=== PATIENT | male | born 1945 | race Caucasian/White ===

== ENCOUNTER 2019-08-28 09:19 | Outpatient (CLI) | payer MEDICARE, SELFPAY ==
[2019-08-28 09:35] LABS: Appearance Urine Clear (Clear); Basophils Absolute Auto 0.04 K/mm3 (0.00-0.10); Basophils Percent Auto 0.4 % (0.0-1.0); Bilirubin Urine Negative (Negative); Color Urine Yellow (Yellow); Eosinophils Absolute Auto 0.04 K/mm3 (0.02-0.50); Eosinophils Percent Auto 0.4 % (1.0-6.0); Glucose Urine UA Negative (Negative); Hematocrit 47.6 % (37.0-46.0); Hemoglobin 16.1 g/dL (12.4-15.3); Immature Granulocyte Absolute 0.05 K/mm3 (0.00-0.00); Immature Granulocyte Percent A 0.4 % (0.0-0.0); Ketones Urine Negative (Negative); Leukocyte Esterase Ur Negative (Negative); Lymphocytes Absolute Auto 1.83 K/mm3 (1.10-4.50); Lymphocytes Percent Auto 16.2 % (18.0-42.0); Mean Corpuscular HGB Conc 33.8 g/dL (32.0-36.0); Mean Corpuscular Hemoglobin 31.1 pg (27.0-31.0); Mean Corpuscular Volume 92.1 fL (78.0-102.0); Mean Platelet Volume 9.9 fl (8.7-11.0); Monocytes Percent Auto 5.3 % (2.0-11.0); Neutrophils Absolute Auto 8.8 K/mm3 (1.7-7.2); Neutrophils Percent Auto 77.3 % (50.0-70.0); Nitrate Urine Negative (Negative); Platelet Count Result 284 K/mm3 (150-420); Protein Urine Negative (Negative); Red Blood Count 5.17 M/mm3 (4.70-6.10); Red Cell Distribution Width 12.1 % (11.6-14.4); White Blood Count 11.3 K/mm3 (4.8-10.8); pH Urine 6.5 (5.0-8.0)
[2019-08-28 09:42] LABS: Add Urine Microscopic? YES; Blood Urine Trace-lysed (Negative); RBC Urine 0-2 /hpf (0-2); WBC Urine 0-3 /hpf (0-3)
[2019-08-28 09:43] LABS: Bacteria Urine 1+ /hpf; Mucus Urine Few /lpf
[2019-08-28 10:33] LABS: Alanine Aminotransferase 29 U/L (16-63); Albumin Level 4.3 g/dL (3.4-5.0); Alkaline Phosphatase 74 U/L (46-116); Anion Gap 11.8 mmol/L (7-16); Aspartate Amino Transferase 16 U/L (15-37); Bilirubin,Total 0.9 mg/dL (0.00-1.00); Blood Urea Nitrogen 23 mg/dL (7-18); Calcium 9.6 mg/dL (8.5-10.1); Carbon Dioxide 30 mmol/L (21-32); Chloride 101 mmol/L (98-108); Cholesterol 179 mg/dL (0-200); Estimated Glomerular Filt Rate > 60; Glucose 141 mg/dL (70-99); HDL Direct 51 mg/dL (40-60); LDL Cholesterol Calculated 105 mg/dL (<130); Osmolality Calculated 293 mOsm/kg (285-295); Potassium 3.8 mmol/L (3.5-5.1); Sodium 139 mmol/L (136-145); Thyroid Stimulating Hormone 1.47 uIU/mL (0.36-3.74); Triglycerides 114 mg/dL (0-150)
[2019-08-28 15:24] LABS: Hemoglobin A1C 6.7 % (<5.7)
== END 2019-08-28 09:20 | disposition home or self-care (01) ==
LOC: CHSLAB 09:24
PROVIDERS: PCP Internal Medicine; Visit Provider Internal Medicine
DX: R25.1 Tremor, unspecified (principal); G47.33 Obstructive sleep apnea (adult) (pediatric); I10 Essential (primary) hypertension; Z12.5 Encounter for screening for malignant neoplasm of prostate; R73.01 Impaired fasting glucose
CPT/HCPCS: 36415; 80053; 80061; 81001; 83036; 84153; 84443; 85025; G0103

== ENCOUNTER 2020-01-14 14:30 | Outpatient (RCR) | payer MEDICARE, SELFPAY | END 2020-01-14 18:09 | disposition home or self-care (01) | LOC: ANHDMC 14:30 | PROVIDERS: PCP Internal Medicine | DX: E11.9 Type 2 diabetes mellitus without complications (principal); Z71.89 Other specified counseling | CPT/HCPCS: G0108; G0109 ==

== ENCOUNTER 2020-07-06 07:05 | Outpatient (CLI) | payer MEDICARE, SELFPAY ==
[2020-07-06 07:46] LABS: Creatinine Urine 60.62 mg/dL (40-278); MALB Creatinine Ratio 21.4 mg/g (0-30); Microalbumin Urine Random < 13.0 mg/L
[2020-07-06 07:51] LABS: Hemoglobin A1C 5.8 % (<5.7)
[2020-07-06 08:26] LABS: Alanine Aminotransferase 26 U/L (16-63); Albumin Level 4.2 g/dL (3.4-5.0); Alkaline Phosphatase 90 U/L (46-116); Anion Gap 10 mmol/L (8-16); Aspartate Amino Transferase 13 U/L (15-37); Bilirubin,Total 0.6 mg/dL (0.00-1.00); Blood Urea Nitrogen 29 mg/dL (7-18); Calcium 9.7 mg/dL (8.5-10.1); Carbon Dioxide 30 mmol/L (21-32); Chloride 102 mmol/L (98-108); Estimated Glomerular Filt Rate > 60; Glucose 105 mg/dL (70-99); Osmolality Calculated 299 mOsm/kg (285-295); Sodium 142 mmol/L (136-145); Total Protein 6.8 g/dL (6.4-8.2)
== END 2020-07-06 07:06 | disposition home or self-care (01) ==
PROVIDERS: PCP Internal Medicine; Visit Provider Internal Medicine
DX: R73.01 Impaired fasting glucose (principal)
CPT/HCPCS: 36415; 80053; 82043; 83036

== ENCOUNTER 2020-08-11 23:32 | Emergency (ER) | payer MEDICARE, SELFPAY ==
--- NOTE | 2020-08-11 23:39 | ED.EYEPROB ---
HPI - Eye Problem General Chief complaint: Eye Problems Stated complaint: eye problem Time Seen by Provider: 08/11/20 23:39 Source: patient Mode of arrival: ambulatory Limitations: no limitations History of Present Illness HPI Narrative: 75-year-old man comes in today complaining of left eye pain and stating that he thinks he has his contact lens caught in his left eye. Patient states that he was watching TV and he felt the contact lens move and when he went to look in his eye in the mere he notice the lens was in the medial lower part of his left eye. He states his left eye is tearing and red And has a foreign body sensation. Other than strabismus surgery as a child he has had no other surgeries. States he thinks his tetanus shot is up-to-date. Related Data Home Medications Medication Instructions Recorded Confirmed hydrochlorothiazide 25 mg PO DAILY 08/11/20 08/11/20 meloxicam 15 mg PO PRN 08/11/20 08/11/20 quinapril 30 mg PO HS 08/11/20 08/11/20 Allergies Allergy/AdvReac Type Severity Reaction Status Date / Time No Known Allergies Allergy Verified 08/11/20 23:59 Review of Systems Constitutional: Constitutional: Denies chills and Denies fever(s) Eyes: Eyes: Reports as per HPI, Denies change in vision and Denies photophobia ENT: Denies dysphagia, Denies nasal congestion and Denies sore throat Gastrointestinal: Gastrointestinal: Denies nausea and Denies vomiting Integumentary/Breasts: Skin/Breast: Denies pruritus, Denies erythema and Denies rash Neurologic: Denies vertigo, Denies dizziness and Denies syncope Hematologic/Lymphatic: Hematologic/Lymphatic: Denies easy bleeding and Denies easy bruising [facility] Past Medical History Medical History (Updated 08/12/20 @ 00:22 by Sam Li MD) Hypertension Surgical History Surgical History (Updated 08/12/20 @ 00:22 by Sam Li MD) History of strabismus surgery Status post appendectomy Status post cholecystectomy Exam Const: General: healthy appearing, no acute distress and alert Orientation/consciousness: patient oriented x3 Limitations: no limitations HENMT: Head: normal to inspection General nose exam: Normal nares present Face and sinus: normal facial exam Mouth: Yes moist mucous membranes Throat: posterior oropharynx normal Eyes: Pupils: Equal, round and reactive pupils present EOM: EOMs intact bilaterally Other: mild left conjunctival injection. Blue tinged contact lens noted in the medial upper fossa. Neck: Neck: normal visual inspection Resp: Effort & Inspection: normal respiratory effort and not labored Auscultation: clear to auscultation bilaterally, no rales, no rhonchi and no wheezes Cardio: Rate: regular rate Rhythm: regular rhythm Heart sounds: no murmurs Skin: General skin exam: normal color, no jaundice and no pallor Rashes: no rashes Neuro: General: patient oriented x3, moves all extremities, no focal motor deficits and CN's II-XI intact bilaterally Speech: normal speech Gait exam (Neuro): Normal gait present Extrem: General: normal to inspection and no clubbing, cyanosis or edema Psych: Appearance: grossly normal and well kempt Mental Status: mental status grossly normal Affect: normal affect Attitude: cooperative Thought content: Yes Normal thought content present Course Vital Signs Vital signs: Vital Signs Temperature 36.2 C L 08/11/20 23:45 Pulse Rate 84 08/11/20 23:45 Respiratory Rate 20 08/11/20 23:45 Blood Pressure 156/86 H 08/11/20 23:45 Pulse Oximetry 97 08/11/20 23:45 Temperature 36.2 C L 08/11/20 23:45 Pulse Rate 84 08/11/20 23:45 Respiratory Rate 20 08/11/20 23:45 Blood Pressure 156/86 H 08/11/20 23:45 Pulse Oximetry 97 08/11/20 23:45 Procedures FB Removal Eye Foreign Body #1: Foreign Body Removal Date: 08/12/20 Foreign Body Removal Time: 00:24 Time Out performed: Yes Location: eye (L) Topical anesthet
[2020-08-11 23:45] VITALS: BP 156/86; PULSE 84; RESP 20; TEMP 36.2; O2SAT 97
[2020-08-11] MEDS: DACRIOSE EYE IRRIGATION 118 ML BOTTLE (23:50)
[2020-08-11] MEDS: TETRACAINE HCL 0.5% OPHTH SOLN 4 ML BTL 1 DROP (23:55)
[2020-08-12] MEDS: FLUORESCEIN SOD 1 MG/STRIP (00:10)
[2020-08-12 00:25] VITALS: BP 145/80; PULSE 78; RESP 20; O2SAT 97
== END 2020-08-12 00:27 | disposition home or self-care (01) ==
PROVIDERS: Emergency Provider Emergency Medicine; PCP Internal Medicine
DX: T15.92XA Foreign body on external eye, part unspecified, left eye, initial encounter (principal)
CPT/HCPCS: 65220; 99282; A9270

== ENCOUNTER 2020-10-13 07:03 | Outpatient (CLI) | payer MEDICARE, SELFPAY ==
[2020-10-13 07:16] LABS: Basophils Absolute Auto 0.04 K/mm3 (0.00-0.10); Basophils Percent Auto 0.4 % (0.0-1.0); Eosinophils Absolute Auto 0.07 K/mm3 (0.02-0.50); Eosinophils Percent Auto 0.7 % (1.0-6.0); Hematocrit 46.5 % (37.0-46.0); Hemoglobin 15.3 g/dL (12.4-15.3); Immature Granulocyte Absolute 0.04 K/mm3 (0.00-0.00); Immature Granulocyte Percent A 0.4 % (0.0-0.0); Lymphocytes Absolute Auto 2.36 K/mm3 (1.10-4.50); Lymphocytes Percent Auto 23.8 % (18.0-42.0); Mean Corpuscular HGB Conc 32.9 g/dL (32.0-36.0); Mean Corpuscular Hemoglobin 31.3 pg (27.0-31.0); Mean Corpuscular Volume 95.1 fL (78.0-102.0); Mean Platelet Volume 9.9 fl (8.7-11.0); Monocytes Absolute Auto 0.54 K/mm3 (0.10-0.90); Monocytes Percent Auto 5.4 % (2.0-11.0); Neutrophils Absolute Auto 6.9 K/mm3 (1.7-7.2); Neutrophils Percent Auto 69.3 % (50.0-70.0); Platelet Count Result 267 K/mm3 (150-420); Red Blood Count 4.89 M/mm3 (4.70-6.10); Red Cell Distribution Width 12.3 % (11.6-14.4); White Blood Count 9.9 K/mm3 (4.8-10.8)
[2020-10-13 07:32] LABS: Creatinine Urine 109.69 mg/dL (40-278); MALB Creatinine Ratio 11.8 mg/g (0-30); Microalbumin Urine Random < 13.0 mg/L
[2020-10-13 07:34] LABS: Hemoglobin A1C 5.8 % (<5.7)
[2020-10-13 08:29] LABS: Alanine Aminotransferase 25 U/L (16-63); Albumin Level 4.1 g/dL (3.4-5.0); Alkaline Phosphatase 72 U/L (46-116); Anion Gap 10 mmol/L (8-16); Aspartate Amino Transferase 14 U/L (15-37); Bilirubin,Total 0.6 mg/dL (0.00-1.00); Blood Urea Nitrogen 29 mg/dL (7-18); Calcium 9.2 mg/dL (8.5-10.1); Carbon Dioxide 30 mmol/L (21-32); Chloride 104 mmol/L (98-108); Cholesterol 162 mg/dL (0-200); Estimated Glomerular Filt Rate > 60; Glucose 102 mg/dL (70-99); HDL Direct 67 mg/dL (40-60); LDL Cholesterol Calculated 86 mg/dL (<130); Osmolality Calculated 303 mOsm/kg (285-295); Prostate Specific Antigen 0.9 ng/mL (< OR = 4.0); Sodium 144 mmol/L (136-145); Total Protein 6.3 g/dL (6.4-8.2); Triglycerides 44 mg/dL (0-150)
== END 2020-10-13 07:04 | disposition home or self-care (01) ==
LOC: CHSLAB 07:06
PROVIDERS: PCP Internal Medicine; Visit Provider Internal Medicine
DX: R73.03 Prediabetes (principal); I10 Essential (primary) hypertension; E78.5 Hyperlipidemia, unspecified; Z12.5 Encounter for screening for malignant neoplasm of prostate; Z00.00 Encounter for general adult medical examination without abnormal findings
CPT/HCPCS: 36415; 80053; 80061; 82043; 83036; 84153; 85025; G0103

== ENCOUNTER 2021-11-23 07:04 | Outpatient (CLI) | payer MEDICARE, SELFPAY ==
[2021-11-23 07:25] LABS: Appearance Urine Clear (Clear); Bilirubin Urine Negative (Negative); Color Urine Light Yellow (Yellow); Glucose Urine UA Negative (Negative); Ketones Urine Negative (Negative); Leukocyte Esterase Ur Negative (Negative); Nitrate Urine Negative (Negative); Protein Urine 1+ (Negative); Urobilinogen Urine 0.2 mg/dL (0.2-1.0)
[2021-11-23 07:42] LABS: Add Urine Microscopic? YES; Blood Urine Trace-Intact (Negative)
[2021-11-23 07:43] LABS: Bacteria Urine Trace /hpf; RBC Urine 0-2 /hpf (0-2); WBC Urine None seen /hpf (0-3)
== END 2021-11-23 07:05 | disposition home or self-care (01) ==
LOC: CHSLAB 07:08
PROVIDERS: PCP Internal Medicine; Visit Provider Internal Medicine
DX: R80.9 Proteinuria, unspecified (principal)
CPT/HCPCS: 81001

== ENCOUNTER 2021-11-25 07:03 | Outpatient (CLI) | payer MEDICARE, SELFPAY ==
[2021-11-25 07:39] LABS: Total Protein Urine 24 Hr 553 mg/24hr (0-149); Total Protein Urine Random 31.6 mg/dL (0.0-11.9); Total Volume 24 Hour Urine 1750 ml
== END 2021-11-25 07:04 | disposition home or self-care (01) ==
LOC: CHSLAB 07:05
PROVIDERS: PCP Internal Medicine; Visit Provider Internal Medicine
DX: R80.9 Proteinuria, unspecified (principal)
CPT/HCPCS: 81050; 84156

== ENCOUNTER 2021-12-12 08:19 | Outpatient (CLI) | payer MEDICARE, SELFPAY ==
--- NOTE | ~2021-12-12 | US_ITS ---
US renal BI 12/12/2021 09:10 Procedure: Proteinuria. History of renal cyst. Indication: Proteinuria. History of renal cysts. Comparison: Ultrasound dated 10/17/2013 Findings: Renal echotexture is normal bilaterally without hydronephrosis or renal calculus. There are bilateral renal cysts. Right renal cyst measures 3.3 cm. There are multiple left renal cysts, larges t measuring up to 5.7 cm. The right kidney measures 11.3 cm and left kidney measures 11.4 cm. Bladde r within normal limits. Impression: 1: Bilateral renal cysts. Reviewed, dictated and finalized at location B. Impression: 1: Bilateral renal cysts.
== END 2021-12-12 08:20 | disposition home or self-care (01) ==
LOC: CHSIMG 08:20
PROVIDERS: PCP Internal Medicine; Visit Provider Internal Medicine
DX: R80.9 Proteinuria, unspecified (principal); N28.1 Cyst of kidney, acquired
CPT/HCPCS: 76775

== ENCOUNTER 2021-12-20 15:05 | Outpatient (CLI) | payer MEDICARE, SELFPAY ==
[2021-12-23 20:08] LABS: Albumin 4.4 g/dL (3.8-4.8); Alpha 1 Globulin 0.3 g/dL (0.2-0.3); Alpha 2 Globulin 0.7 g/dL (0.5-0.9); Beta 1 Globulin 0.4 g/dL (0.4-0.6); Gamma Globulin 0.7 g/dL (0.8-1.7); Interpretation Consistent with; Protein, Total 6.6 g/dL (6.1-8.1)
[2021-12-24 10:00] LABS: Kappa\\Lambda Light Chains 1.91 (0.26-1.65); Lambda Light Chain 11.6 mg/L (5.7-26.3)
== END 2021-12-20 15:06 | disposition home or self-care (01) ==
LOC: CHSLAB 15:09
PROVIDERS: PCP Internal Medicine; Visit Provider Internal Medicine
DX: R80.9 Proteinuria, unspecified (principal)
CPT/HCPCS: 36415; 83883; 84155; 84165; 86334

== ENCOUNTER 2022-12-29 10:37 | Outpatient (CLI) | payer MEDICARE, SELFPAY ==
--- NOTE | ~2022-12-29 | XR_ITS ---
Clinical Indication: Hypertension PA and lateral views of the chest: Comparison: None Findings: Small calcified right midlung granuloma present. The lungs are otherwise clear, without jacqui dence of focal consolidation or pleural effusion. Cardiomediastinal silhouette is within normal limi ts. Bones and soft tissues are unremarkable. Impression: No significant abnormality seen. Reviewed, dictated and finalized at location . Impression: No significant abnormality seen.
--- NOTE | ~2022-12-29 | XR_ITS ---
Cervical Spine: AP, lateral, open-mouth views Clinical History: Pain Findings: The normal lordotic curve is maintained. The vertebral bodies and posterior elements appea r intact. There is advanced degenerative disc narrowing at C4-C5. There is mild to moderate degenerat jerome disc narrowing at C5-C6.. Pre-vertebral soft tissues are unremarkable. Impression: Degenerative disc narrowing, as above. Reviewed, dictated and finalized at location . Impression: Degenerative disc narrowing, as above.
[2022-12-29 10:58] LABS: Appearance Urine Clear (Clear); Basophils Absolute Auto 0.02 K/mm3 (0.00-0.10); Basophils Percent Auto 0.2 % (0.0-1.0); Bilirubin Urine Negative (Negative); Blood Urine 1+ (Negative); Color Urine Yellow (Yellow); Eosinophils Absolute Auto 0.02 K/mm3 (0.02-0.50); Eosinophils Percent Auto 0.2 % (1.0-6.0); Glucose Urine UA Negative (Negative); Hematocrit 42.3 % (37.0-46.0); Hemoglobin 14.5 g/dL (12.4-15.3); Immature Granulocyte Absolute 0.03 K/mm3 (0.00-0.00); Immature Granulocyte Percent A 0.3 % (0.0-0.0); Ketones Urine Negative (Negative); Leukocyte Esterase Ur Negative (Negative); Lymphocytes Absolute Auto 1.68 K/mm3 (1.10-4.50); Lymphocytes Percent Auto 19.1 % (18.0-42.0); Mean Corpuscular HGB Conc 34.3 g/dL (32.0-36.0); Mean Corpuscular Hemoglobin 32.4 pg (27.0-31.0); Mean Corpuscular Volume 94.6 fL (78.0-102.0); Monocytes Absolute Auto 0.48 K/mm3 (0.10-0.90); Monocytes Percent Auto 5.4 % (2.0-11.0); Neutrophils Absolute Auto 6.6 K/mm3 (1.7-7.2); Neutrophils Percent Auto 74.8 % (50.0-70.0); Nitrate Urine Negative (Negative); Platelet Count Result 218 K/mm3 (150-420); Protein Urine Negative (Negative); Red Blood Count 4.47 M/mm3 (4.70-6.10); Red Cell Distribution Width 11.9 % (11.6-14.4); Specific Grav Ur >= 1.030 (1.010-1.020); Urobilinogen Urine 0.2 mg/dL (0.2-1.0); White Blood Count 8.8 K/mm3 (4.8-10.8); pH Urine 5.5 (5.0-8.0)
[2022-12-29 11:01] LABS: Add Urine Microscopic? YES; Bacteria Urine Trace /hpf; Mucus Urine Few /lpf; Squamous Epithelial Cell Urine Rare /hpf (Few); WBC Urine None seen /hpf (0-3)
[2022-12-29 11:42] LABS: Alanine Aminotransferase 19 U/L (16-63); Albumin Level 3.9 g/dL (3.4-5.0); Alkaline Phosphatase 73 U/L (46-116); Anion Gap 8 mmol/L (8-16); Aspartate Amino Transferase 11 U/L (15-37); Bilirubin,Total 0.8 mg/dL (0.00-1.00); Blood Urea Nitrogen 27 mg/dL (7-18); Calcium 9.6 mg/dL (8.5-10.1); Carbon Dioxide 28 mmol/L (21-32); Chloride 104 mmol/L (98-108); Cholesterol 152 mg/dL (0-200); Estimated Glomerular Filt Rate > 60; Free T4 Free Thyroxine 1.02 ng/dL (0.76-1.46); Glucose 106 mg/dL (70-99); HDL Direct 67 mg/dL (40-60); LDL Cholesterol Calculated 76 mg/dL (<130); Osmolality Calculated 295 mOsm/kg (285-295); Potassium 3.6 mmol/L (3.5-5.1); Prostate Specific Antigen 1.4 ng/mL (< OR = 4.0); Sodium 140 mmol/L (136-145); Thyroid Stimulating Hormone 1.09 uIU/mL (0.36-3.74); Total Protein 6.2 g/dL (6.4-8.2); Triglycerides 47 mg/dL (0-150)
[2022-12-29 12:00] LABS: CRP < 0.5 mg/dL (0.0-0.9)
[2022-12-29 17:47] LABS: Hemoglobin A1C 5.8 % (<5.7)
[2023-01-01 15:56] LABS: Albumin 4.1 g/dL (3.8-4.8); Alpha 1 Globulin 0.3 g/dL (0.2-0.3); Alpha 2 Globulin 0.6 g/dL (0.5-0.9); Beta 1 Globulin 0.4 g/dL (0.4-0.6); Gamma Globulin 0.7 g/dL (0.8-1.7); Interpretation Consistent with; Protein, Total 6.2 g/dL (6.1-8.1)
[2023-01-04 04:45] LABS: Creatinine, Random Urine 134 mg/dL (20-320); Total Protein/Creatinine Ratio 97 mg/g creat (25-148)
== END 2022-12-29 10:38 | disposition home or self-care (01) ==
LOC: CHSLAB 10:42
PROVIDERS: PCP Internal Medicine; Visit Provider Internal Medicine
DX: R27.0 Ataxia, unspecified (principal); I10 Essential (primary) hypertension; I73.9 Peripheral vascular disease, unspecified; M19.90 Unspecified osteoarthritis, unspecified site; R73.09 Other abnormal glucose; Z12.5 Encounter for screening for malignant neoplasm of prostate
CPT/HCPCS: 36415; 71046; 72040; 80053; 80061; 81001; 82570; 83036; 84153; 84155; 84156; 84165; 84166; 84439; 84443; 84481; 85025; 86140; 86334; G0103

== ENCOUNTER 2023-01-11 09:04 | Outpatient (CLI) | payer MEDICARE, SELFPAY ==
--- NOTE | ~2023-01-11 | MR_ITS ---
EXAMINATION: MR brain/brain stem wo con DATE: 01/11/2023 10:28 INDICATION: Monoclonal gammopathy. Unsteady gait. TECHNIQUE: Magnetic resonance imaging (MRI) of the brain and brainstem was performed without intraven ous contrast. COMPARISON: None. FINDINGS: There is an 11 mm mass of increased T2-weighted signal intensity involving the anterior rig ht temporal lobe. There are scattered areas of nonspecific increased T2-weighted signal intensity in the cerebral white matter. There is no acute ischemic infarct or intracranial hemorrhage. The ventric les are normal in size. There is mild mucosal thickening in the paranasal sinuses. The orbits are nor mal. The mastoid air cells are normal. IMPRESSION: 1. 11 mm mass in the anterior right temporal lobe. The differential diagnosis includes glioma, old in farct, and HSV encephalitis. Consider brain MRI without and with contrast. 2. Moderate nonspecific cerebral white matter disease, which likely represents chronic small vessel i schemic disease. Reviewed, dictated and finalized at location E. IMPRESSION: 1. 11 mm mass in the anterior right temporal lobe. The differential diagnosis i ncludes glioma, old infarct, and HSV encephalitis. Consider brain MRI without a nd with contrast. 2. Moderate nonspecific cerebral white matter disease, which likely represents chronic small vessel ischemic disease.
== END 2023-01-11 09:05 | disposition home or self-care (01) ==
LOC: CHSIMG 09:05
PROVIDERS: PCP Internal Medicine; Visit Provider Internal Medicine
DX: R27.0 Ataxia, unspecified (principal); I10 Essential (primary) hypertension; G62.9 Polyneuropathy, unspecified; M19.90 Unspecified osteoarthritis, unspecified site; D47.2 Monoclonal gammopathy; R22.0 Localized swelling, mass and lump, head; R90.82 White matter disease, unspecified
CPT/HCPCS: 70551

== ENCOUNTER 2023-01-18 06:46 | Outpatient (CLI) | payer MEDICARE, SELFPAY ==
--- NOTE | ~2023-01-18 | MR_ITS ---
EXAMINATION: MR brain/brain stem wo/w con DATE: 01/18/2023 07:52 INDICATION: Brain mass. TECHNIQUE: Magnetic resonance imaging (MRI) of the brain and brainstem was performed without and with 15 mL MultiHance intravenous contrast. COMPARISON: Brain MRI 01/11/2023 FINDINGS: There is an 11 mm mass of increased T2-weighted signal intensity involving the anterior rig ht temporal lobe. No contrast enhancement. There are scattered areas of nonspecific increased T2-weig hted signal intensity in the cerebral white matter. There is no acute ischemic infarct or intracrania l hemorrhage. The ventricles are normal in size. There is mild mucosal thickening in the paranasal si nuses. The orbits are normal. The mastoid air cells are normal. IMPRESSION: 1. Stable 11 mm mass in the anterior right temporal lobe. The differential diagnosis includes low-gra de glioma, old infarct, and HSV encephalitis. 2. Moderate nonspecific cerebral white matter disease, which likely represents chronic small vessel i schemic disease. Reviewed, dictated and finalized at location E. IMPRESSION: 1. Stable 11 mm mass in the anterior right temporal lobe. The differential diag nosis includes low-grade glioma, old infarct, and HSV encephalitis. 2. Moderate nonspecific cerebral white matter disease, which likely represents chronic small vessel ischemic disease.
== END 2023-01-18 06:47 | disposition home or self-care (01) ==
LOC: CHSIMG 06:47
PROVIDERS: PCP Internal Medicine; Visit Provider Internal Medicine
DX: G93.89 Other specified disorders of brain (principal); R90.82 White matter disease, unspecified
CPT/HCPCS: 70553

== ENCOUNTER 2023-01-23 10:48 | Outpatient (RCR) | payer MEDICARE, SELFPAY ==
--- NOTE | 2023-01-23 11:49 | OPREHPOC ---
Outpatient Therapy Plan of Care This is a Multidisciplinary Plan of Care that may contain components documented by all disciplines (PT, OT, and ST.) PT Problem 1 PT Problem #1 Knowledge Deficit PT Goal 1 Goal Patient to demonstrate independence with HEP Target Visit 5 PT Problem 2 PT Problem #2 Impaired Strength PT Goal 1 Goal Patient to demonstrate 5/5 B LE strength to improve ability to navigate stairs Target Visit 10 PT Problem 3 PT Problem #3 Impaired Functional Mobil PT Goal 1 Goal 1. Patient to complete 5TSTS in less than 15 seconds to decrease fall risk 2. Patient to nagivate 1600 ft during 6 min walk test to decrease fall risk at home and within the community 3. Patient to report no falls Target Visit 10
--- NOTE | 2023-01-23 11:49 | PTOPEVAL1 ---
Assessment and note entered by Kate Galaviz DPT Evaluation Information Assessment Status Evaluation Diagnosis decreased balance Onset 01/19/23 Subjective Information Patient reports he falls at least once a month in the home and out in the yard. He reports he has noticed a decline in balance over the last year. 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 Patient reports his balance is worse with stair navigation, walking on uneven surfaces, and going up curbs. He reports he does have a cane but does not use it. He reports he was once walking and biking but does not feel confident due to poor balance. Reported Pain Level Pain Score 1: Self Report Assessment PT Clinical Summary Patient is a 77 year old male who presents to PT with impaired balance. Patient demonstrate decreaed B LE strength, impaired balance scoring with 5TSTS and tinetti and impaired gait mechanincs impairing his ability to complete yard work, navigate stairs, and ambulate prolonged distances. He would benefit from skilled PT to address impairments and return to [facility]. Plan of Care Interventions Electrical Stimulation,Gait Training,Hot Pack/Cold Pack,Manual Therapy,Neuro Re-education,Patient/ Caregiver Educati,Therapeutic Activities, Therapeutic Exercise PT Services Indicated Yes Treatment Frequency and 2x weekly for 10 visits Duration These treatments will address the objective and functional deficits as defined above. The patient will be advanced safely and appropriately in order for the patient to progress towards his/her prior level of function. Additional exercises will be introduced and as well as a comprehensive home exercise program upon discharge, if needed, ?to ensure carryover of functional gains achieved in the clinic. This treatment plan has been reviewed and agreement upon by the patient.
--- NOTE | 2023-02-21 09:06 | OPREHPOC ---
Outpatient Therapy Plan of Care This is a Multidisciplinary Plan of Care that may contain components documented by all disciplines (PT, OT, and ST.) PT Problem 1 PT Problem #1 Knowledge Deficit PT Goal 1 Goal Patient to demonstrate independence with HEP Target Visit 5 Progress Met PT Problem 2 PT Problem #2 Impaired Strength PT Goal 1 Goal Patient to demonstrate 5/5 B LE strength to improve ability to navigate stairs Target Visit 14 Progress Partially Met PT Problem 3 PT Problem #3 Impaired Functional Mobil PT Goal 1 Goal 1. Patient to complete 5TSTS in less than 15 seconds to decrease fall risk. met 2. Patient to nagivate 1600 ft during 6 min walk test to decrease fall risk at home and within the community 3. Patient to report no falls. met Target Visit 14 Progress Partially Met PT Goal 2 Goal 1. complete 5x sit to v belt finisher 10 seconds of less with no extra attempts to stand on the first transfer 2. complete TUG in 10 seconds or less Target Visit 14
--- NOTE | 2023-02-21 09:06 | PTOPREEVAL ---
Assessment and note entered by JT File, PT Evaluation Information Assessment Status Re-evaluation Diagnosis decreased balance Onset 01/19/23 Subjective Information patient reports he feels Better overall. he reports no falls. he has no pain today. he reports he is improving in his strength and balance, but feels he still has room to improve. he would like to continue therapy to further improve his strength and balance. Reported Pain Level Pain Score 0: Self Report Assessment PT Clinical Summary mr. nunn is a 77 yo man who presents to skilled PT services for his 10th skilled PT visit today. he has made progerss in LE strength, balance, and ambulation. however, he displays several attempts needed for sit to stand transfers, lack of achievement of ambulation distance goal in 6 minute walk test, and lack of achievement of LE strength goal. he would benefit from continued skilled PT to address his remaining objective/ functional deficits and goals. Plan of Care Interventions Electrical Stimulation,Gait Training,Hot Pack/Cold Pack,Manual Therapy,Neuro Re-education,Patient/ Caregiver Educati,Therapeutic Activities, Therapeutic Exercise PT Services Indicated Yes Treatment Frequency and continue skilled PT 2x weekly for 4 more vists Duration These treatments will address the objective and functional deficits as defined above. The patient will be advanced safely and appropriately in order for the patient to progress towards his/her prior level of function. Additional exercises will be introduced and as well as a comprehensive home exercise program upon discharge, if needed, ?to ensure carryover of functional gains achieved in the clinic. This treatment plan has been reviewed and agreement upon by the patient.
--- NOTE | 2023-03-07 09:17 | OPREHPOC ---
Outpatient Therapy Plan of Care This is a Multidisciplinary Plan of Care that may contain components documented by all disciplines (PT, OT, and ST.) PT Problem 1 PT Problem #1 Knowledge Deficit PT Goal 1 Goal Patient to demonstrate independence with HEP Target Visit 5 Progress Met PT Problem 2 PT Problem #2 Impaired Strength PT Goal 1 Goal Patient to demonstrate 5/5 B LE strength to improve ability to navigate stairs Target Visit 14 Progress Partially Met PT Problem 3 PT Problem #3 Impaired Functional Mobil PT Goal 1 Goal 1. Patient to complete 5TSTS in less than 15 seconds to decrease fall risk. met 2. Patient to nagivate 1600 ft during 6 min walk test to decrease fall risk at home and within the community. not met 3. Patient to report no falls. met Target Visit 14 Progress Partially Met PT Goal 2 Goal 1. complete 5x sit to aluminum hydroxide process operator 10 seconds of less with no extra attempts to stand on the first transfer. met for no extra attempts, but not met for time. 2. complete TUG in 10 seconds or less. not met Target Visit 14 Progress Partially Met
--- NOTE | 2023-03-07 09:17 | PTOPDC ---
Assessment and note entered by JT File, PT Evaluation Information Assessment Status Discharge Diagnosis decreased balance Onset 01/19/23 Subjective Information patient reports he feels good today. he reports overall his balance and flexibility are improved. he reports he thinks he is ready to have the L knee replaced. he reports he is going to continue his exercises at home. Reported Pain Level Pain Score 2: Self Report Additional Pain Score Comments L knee Assessment PT Clinical Summary mr. nunn presents to skilled PT for his 14th skilled visit today. he has had no falls or injuries since his last re-evaluation. he has made progress towards goals for skilled PT, but has plateaued at this time reagrding scores on TUG, 5x sit to stand, and 6 minute walk test. he will DC skilled PT for balance and continue with HEP at home. he will follow up with his ortho surgeon regarding L TKA in the future. Plan of Care PT Services Indicated Yes
== END 2023-03-07 11:26 | disposition home or self-care (01) ==
LOC: CHSPT 10:48
PROVIDERS: PCP Internal Medicine; Visit Provider Internal Medicine
DX: R26.89 Other abnormalities of gait and mobility (principal)
CPT/HCPCS: 97110; 97112; 97150; 97161; 97750

== ENCOUNTER 2023-08-30 13:29 | Outpatient (CLI) | payer MEDICARE, SELFPAY ==
--- NOTE | 2023-08-30 13:36 | ECHO_ITS ---
Patient Info Name: Vishnu Mcpherson Age: 78 years : 1945 Gender: Male Ht: 71 in Wt: 168 lbs BSA: 1.96 m2 HR: 72 bpm BP: 157 / 86 mmHg Technical Quality: Fair Exam Date: 08/30/2023 1:29 PM Exam Location: Echo Lab Patient Status: Outpatient Admit Date: 08/30/2023 Staff Ordering Physician: Maycol Cavanaugh MD Loading Unit Operator Seating: Jhonny Edgar RDCS Attending Provider: Maycol Cavanaugh MD Exam Type: CA echo doppler color flow Study Info Indications - mid systolic murmur Complete two-dimensional, color flow and Doppler transthoracic echocardiogram is performed. Summary 1. Complete two-dimensional, color flow and Doppler transthoracic echocardiogram is performed. 2. Left ventricular chamber dimension is normal. 3. Left ventricular systolic function is normal, estimated at 55-60%. 4. The left ventricular diastolic function is grade I diastolic dysfunction. 5. E/e' 6 is not elevated. 6. Left atrial chamber dimension is mildly enlarged. 7. There is trace aortic valve regurgitation. 8. There is moderate mitral valve regurgitation. 9. There is trace tricuspid valve regurgitation. 10. No pulmonary hypertension, estimated pulmonary arterial systolic pressure is 12 mmHg. Left Ventricle E/e' 6 is not elevated. Left ventricular chamber dimension is normal. Left ventricular systolic function is normal, estimated at 55-60%. The left ventricular diastolic function is grade I diastolic dysfunction. Right Ventricle Right ventricular systolic function is normal and with normal TAPSE 1.8 cm. Right ventricular chamber dimension is normal. Left Atria Left atrial chamber dimension is mildly enlarged. Right Atria Right atrial chamber dimension is normal. Aortic Valve The aortic valve is not well visualized. Cannot determine number of aortic valve leaflets. There is no aortic valve stenosis. There is trace aortic valve regurgitation. Pulmonic Valve There is no pulmonic regurgitation. Mitral Valve There is no mitral valve stenosis. There is moderate mitral valve regurgitation. Tricuspid Valve There is trace tricuspid valve regurgitation. No pulmonary hypertension, estimated pulmonary arterial systolic pressure is 12 mmHg. Pericardium/Pleural There is no pericardial effusion. Inferior Vena Cava Normal inferior vena cava with >50% collapse upon inspiration consistent with normal right atrial pressure, 5 mmHg. Aorta The aortic root size at the sinus of Valsalva is normal. Left Ventricular Outflow Tract Name Value Normal LVOT 2D LVOT Diameter 1.9 cm LVOT Doppler LVOT Peak Velocity 111 cm/s LVOT Peak Gradient 5 mmHg LVOT Mean Gradient 2 mmHg LVOT VTI 19 cm LVOT VTI/AV VTI Ratio 0.7 LVOT Stroke Volume 58 ml Pulmonic Valve Name Value Normal PV Doppler PV Peak Velocity 86 cm/s
== END 2023-08-30 13:30 | disposition home or self-care (01) ==
PROVIDERS: PCP Internal Medicine; Visit Provider Internal Medicine
DX: R01.1 Cardiac murmur, unspecified (principal); I34.0 Nonrheumatic mitral (valve) insufficiency
CPT/HCPCS: 93306

== ENCOUNTER 2023-10-03 11:44 | Outpatient (CLI) | payer MEDICARE, SELFPAY ==
--- NOTE | ~2023-10-03 | XR_ITS ---
Supine and upright views of the abdomen Clinical history: Constipation Findings: Bowel gas pattern is nonspecific. Moderate to large amount of stool suggests constipation. No evidence for obstruction or free air. No abnormal mass lesion or calcification is seen. Osseous st ructures are intact. Impression: Moderate to large amount of stool, consistent with constipation. Reviewed, dictated and finalized at [facility]. Impression: Moderate to large amount of stool, consistent with constipation.
[2023-10-03 12:03] LABS: Hematocrit 45.1 % (37.0-46.0); Hemoglobin 15.5 g/dL (12.4-15.3); Mean Corpuscular HGB Conc 34.4 g/dL (32-36); Mean Corpuscular Hemoglobin 32.3 pg (27.0-31.0); Mean Platelet Volume 9.8 fl (8.7-11.0); Platelet Count Result 266 K/mm3 (150-420); Red Cell Distribution Width 11.8 % (11.6-14.4); White Blood Count 10.6 K/mm3 (4.8-10.8)
[2023-10-03 12:48] LABS: Alanine Aminotransferase 10 U/L (16-63); Albumin Level 4.2 g/dL (3.4-5.0); Alkaline Phosphatase 77 U/L (46-116); Anion Gap 8 mmol/L (4-12); Aspartate Amino Transferase 28 U/L (15-37); Bilirubin,Total 1.2 mg/dL (0.00-1.00); Blood Urea Nitrogen 24 mg/dL (7-18); Calcium 9.5 mg/dL (8.5-10.1); Carbon Dioxide 30 mmol/L (21-32); Chloride 98 mmol/L (98-108); Estimated Glomerular Filt Rate > 60; Glucose 129 mg/dL (70-99); Osmolality Calculated 288 mOsm/kg (285-295); Sodium 136 mmol/L (136-145)
[2023-10-03 12:51] LABS: Potassium 4.5 mmol/L (3.5-5.1)
== END 2023-10-03 11:45 | disposition home or self-care (01) ==
LOC: CHSLAB 11:48
PROVIDERS: PCP Internal Medicine; Visit Provider Internal Medicine
DX: K59.00 Constipation, unspecified (principal)
CPT/HCPCS: 36415; 74018; 80053; 83735; 85027

== ENCOUNTER 2023-11-08 13:30 | Outpatient (RCR) | payer MEDICARE, SELFPAY ==
--- NOTE | 2023-09-27 13:58 | PTOPEVAL1 ---
Assessment and note entered by [facility] Evaluation Information Assessment Status Evaluation Diagnosis PD without dyskinesia or fluctuating manifestations G20.A1 ICD-10 Condition Codes (PT) Difficulty Walking R26.2,R26.9 Onset 08/24/23 Subjective Information Pt. reports that he was recently diagnosed with neuropathy. He states that he has noticed difficulty being aware of the position of his feet . He states that he is having trouble with gas pedals while driving. He states that he has fallen 6-7 times in the past 6 months. He reports that falls typically result from him not picking up his feet. He states that he does have constant tingling and numbness in his feet. He reports that he has difficulty with walking in a dark room and states that washing his hair and closing his eyes is difficult due to poor balance. Reported Pain Level Pain Score 0: Self Report Assessment PT Clinical Summary Pt. is an 78 year old male who enters the clinic due to impaired balance with hx of PD. He presents with somatosensory deconditioning on this date likely resulting from l.e. neuropathy. continued skilled PT is indicated in order to address balance, strength, impaired gait and functional decline to improve pt. safety with IADL and decrease fall risk. Plan of Care Interventions Gait Training,Manual Therapy,Neuro Re-education, Patient/Caregiver Educati,Therapeutic Activities, Therapeutic Exercise,Self-Care/Home Management Treatment Frequency and 2x/week x 10 visits Duration These treatments will address the objective and functional deficits as defined above. The patient will be advanced safely and appropriately in order for the patient to progress towards his/her prior level of function. Additional exercises will be introduced and as well as a comprehensive home exercise program upon discharge, if needed, ?to ensure carryover of functional gains achieved in the clinic. This treatment plan has been reviewed and agreement upon by the patient.
--- NOTE | 2023-09-27 14:02 | OPREHPOC ---
Outpatient Therapy Plan of Care This is a Multidisciplinary Plan of Care that may contain components documented by all disciplines (PT, OT, and ST.) PT Problem 1 PT Problem #1 Knowledge Deficit PT Goal 1 Goal Pt. will be independent with a HEP addressing l.e. strength Target Visit 2 PT Problem 2 PT Problem #2 Impaired Balance PT Goal 1 Goal Pt. will improve his tinetti score to 24 or greater indicating low fall risk. Target Visit 10 PT Problem 3 PT Problem #3 Impaired Gait PT Goal 1 Goal Pt. will complete 6 minute walk test without incidence of right heel striking left stance extremity to improve safety with ambulation. Target Visit 10 PT Problem 4 PT Problem #4 Impaired Functional Mobil PT Goal 1 Goal Pt. will be able to safely lift 10# object from floor to waist maintaining balance Pt. will be able to maintain standing on airex foam eyes closed without lose of balance for 1 minute indicating improved somatosensory condition . Target Visit 10
--- NOTE | 2023-11-07 09:51 | PCPTNOTE ---
Patient was canceled 10/30/23 due to therapist out with illness.
--- NOTE | 2023-11-08 15:27 | PTOPDC ---
Assessment and note entered by [facility] Evaluation Information Assessment Status Discharge Diagnosis PD without dyskinesia ICD-10 Condition Codes (PT) Difficulty Walking R26.2,R26.9 Onset 08/24/23 Subjective Information Pt. reports that he has noticed small changes since beginning therapy. He states that he has not been able to walk outside the clinic as much as he would like. He states that he has been doing all exercise at home. He feels that he would like to continue with PT, however he feels he may need to use a facility closer to his home. He states that the [facility] facility saves him [address] and would like to transfer his care there in order to continue to improve his strength and gait. Reported Pain Level Pain Score 0: Self Report Assessment PT Clinical Summary Pt. continues to present with strength and balance deficits. He travels a long way to attend therapy and request to continue rehab at a closer facility. He would benefit from continued PT in order to further improve gait and balance, as well as continued postural awareness activities. Plan of Care PT Services Indicated No
== END 2023-11-08 16:52 | disposition home or self-care (01) ==
LOC: ANHPT 13:30
PROVIDERS: PCP Internal Medicine
DX: G20.A1 Parkinson's disease without dyskinesia, without mention of fluctuations (principal)
CPT/HCPCS: 97110; 97112; 97116; 97161; 97530; 97750

== ENCOUNTER 2023-11-14 10:31 | Outpatient (RCR) | payer MEDICARE, SELFPAY ==
--- NOTE | 2023-11-14 13:23 | PTOPEVAL1 ---
[facility] Information Assessment Status Evaluation Diagnosis PD without dyskinesia ICD-10 Condition Codes (PT) Difficulty Walking R26.2,R26.9 Onset 08/24/23 Subjective Information Pt. reports that he was receiving therapy in another facility, but transitioned his care due to being closer to home. He reports that he was diagnosed with PD about a year ago. He states that while he has improved with recent PT he still has concerns regarding his balance. He states that he notices occasional stumbling and issue regarding endurance. He reports that his goal remains to improve his gait and strength. Reported Pain Level Pain Score 0: Self Report Assessment PT Clinical Summary Pt. enters the facility 6 days following last re- evaluation at another facility. Pt. requested to change facilities due to closer proximity in [place]. Most data was taken from the patients evaluation performed at his last facility by myself. He currently presents with impaired postural awareness, continued fall risk, continued weakness and impaired gait, despite improvements from initial evaluation. Recommend continued skilled PT to further improve gait efficiency, balance and begin focus on postural awareness. Plan of Care Interventions Gait Training,Manual Therapy,Neuro Re-education, Patient/Caregiver Educati,Therapeutic Activities, Therapeutic Exercise PT Services Indicated Yes Treatment Frequency and 2x/week x 8 visits Duration These treatments will address the objective and functional deficits as defined above. The patient will be advanced safely and appropriately in order for the patient to progress towards his/her prior level of function. Additional exercises will be introduced and as well as a comprehensive home exercise program upon discharge, if needed, ?to ensure carryover of functional gains achieved in the clinic. This treatment plan has been reviewed and agreement upon by the patient.
--- NOTE | 2023-11-14 13:24 | OPREHPOC ---
Outpatient Therapy Plan of Care This is a Multidisciplinary Plan of Care that may contain components documented by all disciplines (PT, OT, and ST.) PT Problem 1 PT Problem #1 Knowledge Deficit PT Goal 1 Goal / Goal Update Pt. will present with independence with a HEP addressing postural awareness Target Visit 2 PT Problem 2 PT Problem #2 Impaired Balance PT Goal 1 Goal / Goal Update Pt. will improve his Tinetti score to 24 or more indicating low fall risk. Target Visit 8 PT Problem 3 PT Problem #3 Impaired Gait PT Goal 1 Goal / Goal Update Pt. will complete the 6 minute walk test without incidence of right heel striking the left stance extremity to improved safety with ambulation Target Visit 8 PT Problem 4 PT Problem #4 Impaired Functional Mobil PT Goal 1 Goal / Goal Update Pt. will be able to safely lift 10# object from floor to waist maintaining balance. Pt. will be able to maintain standing on airex foam eyes closed without lose of balance for 1 minute indicating improved somatosensory condition . Target Visit 8
--- NOTE | 2023-12-05 15:47 | PTOPEVAL1 ---
Assessment and note entered by [facility] Evaluation Information Assessment Status Progress Diagnosis PD without dyskinesia ICD-10 Condition Codes (PT) Difficulty Walking R26.2,R26.9 Onset 08/24/23 Subjective Information Pt. reports that his walking has improved. He states that he still uses his cane in the morning, but notices less incidence of stumbling. He states that he is dizzy today, but did not eat much for breakfast. He reports that he notices he is stronger with getting into and out of a chair. He reports that his goal is to be able to walk with improved independence and no episode of stumbling. Reported Pain Level Pain Score 3: Self Report Assessment PT Clinical Summary Pt. demonstrate improvement in l.e. strength and gait. Despite improvements weakness continues to remain in the l.e. and he continues to present with moderate fall risk. He would benefit from skilled PT at this time to continue to achieve improvements in overall balance and Tinetti score and to continue to address postural awareness to allow for improved safety and efficiency with ADL' s. Plan of Care Interventions Gait Training,Manual Therapy,Neuro Re-education, Patient/Caregiver Educati,Therapeutic Activities, Therapeutic Exercise PT Services Indicated Yes Treatment Frequency and 2x/week x 8 visits Duration These treatments will address the objective and functional deficits as defined above. The patient will be advanced safely and appropriately in order for the patient to progress towards his/her prior level of function. Additional exercises will be introduced and as well as a comprehensive home exercise program upon discharge, if needed, ?to ensure carryover of functional gains achieved in the clinic. This treatment plan has been reviewed and agreement upon by the patient.
--- NOTE | 2024-01-02 10:28 | PTOPDC ---
Assessment and note entered by [facility] Evaluation Information Assessment Status Discharge Diagnosis PD without dyskinesia ICD-10 Condition Codes (PT) Difficulty Walking R26.2,R26.9 Onset 08/24/23 Subjective Information Pt. notices that he is walking better. He states that he is overall more confident with his walking . He reports that he fatigues less easily and catches his toe less frequently on the left side. Reported Pain Level Pain Score 0: Self Report Assessment PT Clinical Summary Pt. presents with improved gait efficiency, improved l.e. strength and no recent incident of fall or lose of balance. He is independent with a current HEP. At this time given his improvement, pt. will be discharged from our care to an independent HEP. Plan of Care PT Services Indicated No
== END 2024-01-02 10:31 | disposition home or self-care (01) ==
LOC: CHSPT 10:31
PROVIDERS: PCP Internal Medicine
DX: G20.A1 Parkinson's disease without dyskinesia, without mention of fluctuations (principal)
CPT/HCPCS: 97110; 97112; 97150; 97530

== ENCOUNTER 2024-01-30 14:45 | Outpatient (RCR) | payer MEDICARE, SELFPAY ==
--- NOTE | 2024-01-30 15:32 | OPREHPOC ---
Outpatient Therapy Plan of Care This is a Multidisciplinary Plan of Care that may contain components documented by all disciplines (PT, OT, and ST.) PT Problem 1 PT Problem #1 Knowledge Deficit PT Goal 1 Goal / Goal Update 1. compliant with HEP program, maintenance program , and attendance of 2x weekly fall prevention class Target Visit 4 PT Problem 2 PT Problem #2 Impaired Functional Mobil PT Goal 1 Goal / Goal Update 1. patient to display no more than a 2-3 second reduction in score on the TUG and 5x sit to stand 2. HYDE to display 6 points or greater improvement of score. Target Visit 4
--- NOTE | 2024-01-30 15:32 | PTOPEVAL1 ---
Assessment and note entered by [facility], PT Evaluation Information Assessment Status Re-evaluation Diagnosis parkinson's disease Other ICD-10 Condition Codes ( G20.A1; G62.9 PT) Onset 01/21/24 Subjective Information patient was recently in PT at this facility for his diagnosis of Parkinson's Disease. he was discharged on 01/02/24, but returned to his neurologist who sent new orders for him to return to PT. he reports he has been exercising at home alone since he was discharged, and has attended no other classes. Reported Pain Level Pain Score 0: Self Report Assessment PT Clinical Summary mr. nunn presents to skilled PT for therapy pertaining to prevention of the progression of his parkinson's disease. he was recently in PT for this same diagnosis. however, after DC, his neurolgist suggested he continue PT to prevent the progression of his disease. he presents today with a high fall risk, but good scores on the 5x sit to stand/tug/ambulation. he would benefit from return to skilled PT for a maintenance program, and also attendance at 2x weekly fall prevention class. Plan of Care Interventions Gait Training,Neuro Re-education,Patient/Caregiver Educati,Therapeutic Activities,Therapeutic Exercise PT Services Indicated Yes Treatment Frequency and 1x weekly for 4 visits in a maintenance program Duration These treatments will address the objective and functional deficits as defined above. The patient will be advanced safely and appropriately in order for the patient to progress towards his/her prior level of function. Additional exercises will be introduced and as well as a comprehensive home exercise program upon discharge, if needed, ?to ensure carryover of functional gains achieved in the clinic. This treatment plan has been reviewed and agreement upon by the patient.
--- NOTE | 2024-02-20 15:47 | OPREHPOC ---
Outpatient Therapy Plan of Care This is a Multidisciplinary Plan of Care that may contain components documented by all disciplines (PT, OT, and ST.) PT Problem 1 PT Problem #1 Knowledge Deficit PT Goal 1 Goal / Goal Update 1. compliant with HEP program, maintenance program , and attendance of 2x weekly fall prevention class Target Visit 4 Progress Met PT Problem 2 PT Problem #2 Impaired Functional Mobil PT Goal 1 Goal / Goal Update 1. patient to display no more than a 2-3 second reduction in score on the TUG and 5x sit to stand. met 2Michael HYDE to display 6 points or greater improvement of score. not met Target Visit 8 Progress Partially Met
--- NOTE | 2024-02-20 15:47 | PTOPREEVAL ---
Assessment and note entered by [facility], PT Evaluation Information Assessment Status Re-evaluation Diagnosis parkinson's disease Other ICD-10 Condition Codes ( G20.A1; G62.9 PT) Onset 01/21/24 Subjective Information patient reports he feels good today. he has only mild symptoms in the L knee that he has all the time due to OA in the knee. he has been compliant with his HEP, PT, and fall prevention classes. Reported Pain Level Pain Score 0: Self Report Assessment PT Clinical Summary mr. nunn has completed 4 visits of skilled maintenance therapy as of this date. he presents with improved ambulation efficiency, and decreased fall risk per the 5x sit to stand and TUG scores today. however, he has not met goal for increased balance/performance on the HYDE. he is attending 2x weekly fall prevention class, but would do well to continue skilled maintenance therapy 1x weekly with greater focus on static and dynamic balance improvements to achieve skilled PT goals. Plan of Care Interventions Gait Training,Neuro Re-education,Patient/Caregiver Educati,Therapeutic Activities,Therapeutic Exercise PT Services Indicated Yes Treatment Frequency and continue skilled PT 1x weekly for 4 more visits Duration These treatments will address the objective and functional deficits as defined above. The patient will be advanced safely and appropriately in order for the patient to progress towards his/her prior level of function. Additional exercises will be introduced and as well as a comprehensive home exercise program upon discharge, if needed, ?to ensure carryover of functional gains achieved in the clinic. This treatment plan has been reviewed and agreement upon by the patient.
--- NOTE | 2024-03-21 14:39 | OPREHPOC ---
Outpatient Therapy Plan of Care This is a Multidisciplinary Plan of Care that may contain components documented by all disciplines (PT, OT, and ST.) PT Problem 1 PT Problem #1 Knowledge Deficit PT Goal 1 Goal / Goal Update 1. compliant with HEP program, maintenance program , and attendance of 2x weekly fall prevention class Target Visit 4 Progress Met PT Problem 2 PT Problem #2 Impaired Functional Mobility PT Goal 1 Goal / Goal Update 1. patient to display no more than a 2-3 second reduction in score on the TUG and 5x sit to stand. met 2. HYDE to display 6 points or greater improvement of score. not met Target Visit 12 Progress Partially Met PT Problem 3 PT Problem #3 Impaired Functional Mobility PT Goal 1 Goal / Goal Update 1. patient to ambulate up and down steps with reciprocal mechanics without need for UE assist to pullup to next step going up. Target Visit 12
--- NOTE | 2024-03-21 14:39 | PTOPREEVAL ---
Assessment and note entered by [facility], PT Evaluation Information Assessment Status Re-evaluation Diagnosis parkinson's disease Other ICD-10 Condition Codes ( G20.A1; G62.9 PT) Onset 01/21/24 Subjective Information patient reports he feels alright today. he reports he continues to be bothered on and off by pain in his L knee. he is not sure if he is going to ever have it replaced or not. he reports he does believe therapy helps keep him moving and keeps his balance up. Reported Pain Level Pain Score 4: Self Report Assessment PT Clinical Summary mr. nunn presents to skilled PT services for re- evaluation and treatment today. today is his 8th maintenance therapy treatment, and aside from his L knee pain impacting his walking at times, he has done well to maintain all scores within an acceptable range on the tug, masters, and 5x sit to stand. he would benefit from continued skilled PT in a maintenance program given his diagnosis of Parkinson's. he would also benefit from additional practice and training on stair ambulation to improve function and independence on step. Plan of Care Interventions Gait Training,Neuro Re-education,Patient/Caregiver Education,Therapeutic Activities,Therapeutic Exercise PT Services Indicated Yes Treatment Frequency and continue skilled PT 1x weekly for 4 more visits Duration These treatments will address the objective and functional deficits as defined above. The patient will be advanced safely and appropriately in order for the patient to progress towards his/her prior level of function. Additional exercises will be introduced and as well as a comprehensive home exercise program upon discharge, if needed, ?to ensure carryover of functional gains achieved in the clinic. This treatment plan has been reviewed and agreement upon by the patient.
--- NOTE | 2024-03-28 14:10 | PCPTNOTE ---
Patient called & cancelled scheduled appointment this date due to weather.
--- NOTE | 2024-04-23 14:19 | OPREHPOC ---
Outpatient Therapy Plan of Care This is a Multidisciplinary Plan of Care that may contain components documented by all disciplines (PT, OT, and ST.) PT Problem 1 PT Problem #1 Knowledge Deficit PT Goal 1 Goal / Goal Update 1. compliant with HEP program, maintenance program , and attendance of 2x weekly fall prevention class Target Visit 4 Progress Met PT Problem 2 PT Problem #2 Impaired Functional Mobility PT Goal 1 Goal / Goal Update 1. patient to display no more than a 2-3 second reduction in score on the TUG and 5x sit to stand. met 2. HYDE to display 6 points or greater improvement of score. not met Target Visit 16 Progress Partially Met PT Problem 3 PT Problem #3 Impaired Functional Mobility PT Goal 1 Goal / Goal Update 1. patient to ambulate up and down steps with reciprocal mechanics without need for UE assist to pullup to next step going up. Target Visit 16
--- NOTE | 2024-04-23 14:19 | PTOPREEVAL ---
Assessment and note entered by [facility], PT Evaluation Information Assessment Status Re-evaluation Diagnosis parkinson's disease Other ICD-10 Condition Codes ( G20.A1; G62.9 PT) Onset 01/21/24 Subjective Information patient reports the L knee is tender today. he reports lately he feels he is doing better with therapy. he reports he is either improved most of the time or staying the same. he reports he is definitely not regressing. Reported Pain Level Pain Score 4: Self Report Assessment PT Clinical Summary mr. nunn presents to skilled PT services for his 12th skilled maintenance PT. he presents today with improved time on the 5x sit to stand and maintained time on the TUG. he does walk more slowly during the 6 minute walk test, but is limited due to increased pain in the L knee. continued skilled maintenance PT is indicated with the focus on balance and proprioception and functional activity maintenance. Plan of Care Interventions Gait Training,Neuro Re-education,Patient/Caregiver Education,Therapeutic Activities,Therapeutic Exercise PT Services Indicated Yes Treatment Frequency and continue skilled PT 1x weekly for 4 more visits Duration These treatments will address the objective and functional deficits as defined above. The patient will be advanced safely and appropriately in order for the patient to progress towards his/her prior level of function. Additional exercises will be introduced and as well as a comprehensive home exercise program upon discharge, if needed, ?to ensure carryover of functional gains achieved in the clinic. This treatment plan has been reviewed and agreement upon by the patient.
== END 2024-04-23 11:13 | disposition still patient (30) ==
LOC: CHSPT 14:45
DX: G62.9 Polyneuropathy, unspecified (principal); G20.A1 Parkinson's disease without dyskinesia, without mention of fluctuations
CPT/HCPCS: 97110; 97112; 97150; 97161; 97530; 97750

== ENCOUNTER 2024-05-07 12:58 | Outpatient (RCR) | payer MEDICARE, SELFPAY ==
--- NOTE | 2024-05-28 13:54 | OPREHPOC ---
Outpatient Therapy Plan of Care This is a Multidisciplinary Plan of Care that may contain components documented by all disciplines (PT, OT, and ST.) PT Problem 1 PT Problem #1 Knowledge Deficit PT Goal 1 Goal / Goal Update 1. compliant with HEP program, maintenance program , and attendance of 2x weekly fall prevention class Target Visit 4 Progress Met PT Problem 2 PT Problem #2 Impaired Functional Mobility PT Goal 1 Goal / Goal Update 1. patient to display no more than a 2-3 second reduction in score on the TUG and 5x sit to stand. met 2. HYDE to display 6 points or greater improvement of score. met Target Visit 16 Progress Met PT Problem 3 PT Problem #3 Impaired Functional Mobility PT Goal 1 Goal / Goal Update 1. patient to ambulate up and down steps with reciprocal mechanics without need for UE assist to pullup to next step going up. Target Visit 16 Progress Not Met
--- NOTE | 2024-05-28 13:54 | PTOPPROG ---
Assessment and note entered by Iris Rudolph, PT Evaluation Information Assessment Status Progress Diagnosis Parkinson's Disease Other ICD-10 Condition Codes ( G20.A1; G62.9 PT) Onset 01/21/24 Subjective Information Vishnu Mcpherson reports he doing well. He is coming to skilled PT once a week and goes to fall prevention class 1-2 times a week. He has not had any falls over the last month. He reports he uses a cart when he walks at the grocery store or [employer]. He notes he is more unsteady when he closes his eyes or is in a dark room. Assessment PT Clinical Summary Vishnu Mcpherson has completed 16th skilled maintenance PT visits. He demonstrates improved scores on the Powers Balance test, 5 time sit to stand, and TUG tests. He does have knee pain with prolonged walking. He continues to benefit from skilled maintenance PT to prevent regression of balance, endurance, and strength. Plan of Care Interventions Gait Training,Neuro Re-education,Patient/Caregiver Education,Therapeutic Activities,Therapeutic Exercise PT Services Indicated Yes Treatment Frequency and continue skilled PT 1x weekly for 4 more visits Duration These treatments will address the objective and functional deficits as defined above. The patient will be advanced safely and appropriately in order for the patient to progress towards his/her prior level of function. Additional exercises will be introduced and as well as a comprehensive home exercise program upon discharge, if needed, to ensure carryover of functional gains achieved in the clinic. This treatment plan has been reviewed and agreement upon by the patient.
--- NOTE | 2024-06-25 13:59 | OPREHPOC ---
Outpatient Therapy Plan of Care This is a Multidisciplinary Plan of Care that may contain components documented by all disciplines (PT, OT, and ST.) PT Problem 1 PT Problem #1 Knowledge Deficit PT Goal 1 Goal / Goal Update 1. compliant with HEP program, maintenance program , and attendance of 2x weekly fall prevention class Target Visit 4 Progress Met PT Problem 2 PT Problem #2 Impaired Functional Mobility PT Goal 1 Goal / Goal Update 1. patient to display no more than a 2-3 second reduction in score on the TUG and 5x sit to stand. met 2. HYDE to display 6 points or greater improvement of score. met Target Visit 16 Progress Met PT Goal 2 Goal / Goal Update New Goal: Patient to demonstrate a low fall risk per the Tinetti Balance Score. Patient to demonstrate a low fall risk per the HYDE balance test. Target Visit 24 PT Problem 3 PT Problem #3 Impaired Functional Mobility PT Goal 1 Goal / Goal Update 1. patient to ambulate up and down steps with reciprocal mechanics without need for UE assist to pullup to next step going up. Target Visit 16 Progress Not Met PT Goal 2 Goal / Goal Update Continue Target Visit 24
--- NOTE | 2024-06-25 13:59 | PTOPPROG ---
Assessment and note entered by Iris Rudolph, PT Evaluation Information Assessment Status Progress Diagnosis Parkinson's Disease Other ICD-10 Condition Codes ( G20.A1; G62.9 PT) Onset 01/21/24 Subjective Information Vishnu Mcpherson reports he continues to do well and is coming to skilled PT once a week and goes to fall prevention class 1-2 times a week. He has not had any falls over the last month. He has a cane he uses occasionally and uses a cart when he walks at the grocery store or [employer]. He normally does not use an AD. He will see a neurologist who specializes in Parkinson's Disease on 06/26/24. Assessment PT Clinical Summary Vishnu Mcpherson has completed 20 skilled maintenance PT visits. He demonstrates improved scores on the Powers Balance test, 5 time sit to stand, and TUG tests. He does demonstrate difficulty with higher level balance and dynamic gait. He is taking stairs one at a time. He continues to benefit from skilled maintenance PT to prevent regression of balance, endurance, and strength. Plan of Care Interventions Gait Training,Neuro Re-education,Patient/Caregiver Education,Therapeutic Activities,Therapeutic Exercise PT Services Indicated Yes Treatment Frequency and continue skilled PT 1x weekly for 4 more visits Duration These treatments will address the objective and functional deficits as defined above. The patient will be advanced safely and appropriately in order for the patient to progress towards his/her prior level of function. Additional exercises will be introduced and as well as a comprehensive home exercise program upon discharge, if needed, to ensure carryover of functional gains achieved in the clinic. This treatment plan has been reviewed and agreement upon by the patient.
--- NOTE | 2024-07-23 14:46 | OPREHPOC ---
Outpatient Therapy Plan of Care This is a Multidisciplinary Plan of Care that may contain components documented by all disciplines (PT, OT, and ST.) PT Problem 1 PT Problem #1 Knowledge Deficit PT Goal 1 Goal / Goal Update 1. compliant with HEP program, maintenance program , and attendance of 2x weekly fall prevention class Target Visit 4 Progress Met PT Problem 2 PT Problem #2 Impaired Functional Mobility PT Goal 1 Goal / Goal Update 1. patient to display no more than a 2-3 second reduction in score on the TUG and 5x sit to stand. met 2. HYDE to display 6 points or greater improvement of score. met Target Visit 16 Progress Met PT Goal 2 Goal / Goal Update New Goal: Patient to demonstrate a low fall risk per the Tinetti Balance Score. Patient to demonstrate a low fall risk per the HYDE balance test. Target Visit 28 Progress Not Met PT Problem 3 PT Problem #3 Impaired Functional Mobility PT Goal 1 Goal / Goal Update 1. patient to ambulate up and down steps with reciprocal mechanics without need for UE assist to pullup to next step going up. Target Visit 28 Progress Not Met PT Goal 2 Goal / Goal Update Continue Target Visit 28
--- NOTE | 2024-07-23 14:47 | PTOPREEVAL ---
Assessment and note entered by JT File, PT Evaluation Information Assessment Status Re-evaluation Diagnosis Parkinson's Disease Other ICD-10 Condition Codes ( G20.A1; G62.9 PT) Onset 01/21/24 Subjective Information patient reports he feels Good today. he reports he continues to have pain in the L knee with increased standing and walking activities. he reports he has had no falls since his last re- evaluation. he is compliant with HEP at home, and attends a group class 2x weekly for strengthening of his legs and arms. Reported Pain Level Pain Score 0: Self Report Assessment PT Clinical Summary Mr. Mcpherson is able to ambulate independently without AD safely on level surfaces. Pts tinetti, HYDE, and 6 minute walk test scores are similar to last evaluation and don't show significant regression. however, given the progressive nature of the patients parksinsons diagonsis, he remains a fall risk, and has difficulty with higher level balance tasks without UE support and SBA for safety. continued skilled PT is indicated to maintain his balance, ambulation, and safety with activities to maintain his current functional level and quality of life. Plan of Care Interventions Gait Training,Neuro Re-education,Patient/Caregiver Education,Therapeutic Activities,Therapeutic Exercise PT Services Indicated Yes Treatment Frequency and continue skilled maintenance program 1x weekly for Duration 4 more visits These treatments will address the objective and functional deficits as defined above. The patient will be advanced safely and appropriately in order for the patient to progress towards his/her prior level of function. Additional exercises will be introduced and as well as a comprehensive home exercise program upon discharge, if needed, to ensure carryover of functional gains achieved in the clinic. This treatment plan has been reviewed and agreement upon by the patient.
== END 2024-07-30 20:00 | disposition still patient (30) ==
LOC: CHSPT 12:58
DX: G62.9 Polyneuropathy, unspecified (principal); G20.A1 Parkinson's disease without dyskinesia, without mention of fluctuations
CPT/HCPCS: 97110; 97112; 97161; 97530; 97750

== ENCOUNTER 2024-08-06 13:20 | Outpatient (RCR) | payer MEDICARE, SELFPAY ==
--- NOTE | 2024-08-20 13:53 | OPREHPOC ---
Outpatient Therapy Plan of Care This is a Multidisciplinary Plan of Care that may contain components documented by all disciplines (PT, OT, and ST.) PT Problem 1 PT Problem #1 Knowledge Deficit PT Goal 1 Goal / Goal Update 1. compliant with HEP program, maintenance program , and attendance of 2x weekly fall prevention class Target Visit 4 Progress Met PT Problem 2 PT Problem #2 Impaired Functional Mobility PT Goal 1 Goal / Goal Update 1. patient to display no more than a 2-3 second reduction in score on the TUG and 5x sit to stand. met 2. HYDE to display 6 points or greater improvement of score. met Target Visit 16 Progress Met PT Goal 2 Goal / Goal Update New Goal: Patient to demonstrate a low fall risk per the Tinetti Balance Score. Patient to demonstrate a low fall risk per the HYDE balance test. Target Visit 32 Progress Not Met PT Problem 3 PT Problem #3 Impaired Functional Mobility PT Goal 1 Goal / Goal Update 1. patient to ambulate up and down steps with reciprocal mechanics without need for UE assist to pullup to next step going up. Target Visit 32 Progress Not Met PT Goal 2 Goal / Goal Update Continue Target Visit 32
--- NOTE | 2024-08-20 13:54 | PTOPREEVAL ---
Assessment and note entered by JT File, PT Evaluation Information Assessment Status Re-evaluation Diagnosis Parkinson's Disease Other ICD-10 Condition Codes ( G20.A1; G62.9 PT) Onset 01/21/24 Subjective Information patient reports he has had no changes in his health since his last re-evaluation. he reports he has had no falls. he reports the L knee is feeling good today including the L knee. he reports he has no pain to report. Reported Pain Level Pain Score 0: Self Report Assessment PT Clinical Summary mrs. nunn presents to skilled PT for re-evaluation of his maintenance POC for Parkinson's. despite his reports of no falls, patient continues to be a fall risk when up on his feet for a prolonged time, making sharp turns, and repetitively using stairs. continue skilled maintenance PT is indicated to maintain patients safety, stability, and lack of falls to prevent worsening Parkinson's condition or injury. Plan of Care Interventions Gait Training,Neuro Re-education,Patient/Caregiver Education,Therapeutic Activities,Therapeutic Exercise PT Services Indicated Yes Treatment Frequency and continue skilled maintenance PT 1x weekly for 4 Duration more visits These treatments will address the objective and functional deficits as defined above. The patient will be advanced safely and appropriately in order for the patient to progress towards his/her prior level of function. Additional exercises will be introduced and as well as a comprehensive home exercise program upon discharge, if needed, ?to ensure carryover of functional gains achieved in the clinic. This treatment plan has been reviewed and agreement upon by the patient.
--- NOTE | 2024-09-24 14:26 | OPREHPOC ---
Outpatient Therapy Plan of Care This is a Multidisciplinary Plan of Care that may contain components documented by all disciplines (PT, OT, and ST.) PT Problem 1 PT Problem #1 Knowledge Deficit PT Goal 1 Goal / Goal Update 1. compliant with HEP program, maintenance program , and attendance of 2x weekly fall prevention class Target Visit 4 Progress Met PT Problem 2 PT Problem #2 Impaired Functional Mobility PT Goal 1 Goal / Goal Update 1. patient to display no more than a 2-3 second reduction in score on the TUG and 5x sit to stand. met 2. HYDE to display 6 points or greater improvement of score. met Target Visit 16 Progress Met PT Goal 2 Goal / Goal Update New Goal: Patient to demonstrate a low fall risk per the Tinetti Balance Score. Patient to demonstrate a low fall risk per the HYDE balance test. Target Visit 36 Progress Not Met PT Problem 3 PT Problem #3 Impaired Functional Mobility PT Goal 1 Goal / Goal Update 1. patient to ambulate up and down steps with reciprocal mechanics without need for UE assist to pullup to next step going up. Target Visit 32 Progress Not Met PT Goal 2 Goal / Goal Update Continue Target Visit 36
--- NOTE | 2024-09-24 14:27 | PTOPPROG ---
Assessment and note entered by Iris Rudolph, PT Evaluation Information Assessment Status Progress Diagnosis Parkinson's Disease Other ICD-10 Condition Codes ( G20.A1; G62.9 PT) Onset 01/21/24 Subjective Information Vishnu Mcpherson reports he saw his neurologist on and he thought he was doing well. He recommend he continue his PT as long as he can. Mr. Mcpherson reports he has had no falls and he is currently not having pain. Assessment PT Clinical Summary mrs. mcpherson presents to skilled PT for re-evaluation of his maintenance POC for Parkinson's. despite his reports of no falls, patient continues to be a fall risk when up on his feet for a prolonged time, making sharp turns, and repetitively using stairs. he continues to demonstrate a moderate fall risk per the Tinetti and Powers balance scales. continue skilled maintenance PT is indicated to maintain patients safety, stability, and lack of falls to prevent worsening Parkinson's condition or injury. Plan of Care Interventions Gait Training,Neuro Re-education,Patient/Caregiver Education,Therapeutic Activities,Therapeutic Exercise PT Services Indicated Yes Treatment Frequency and continue skilled maintenance PT 1x weekly for 4 Duration more visits These treatments will address the objective and functional deficits as defined above. The patient will be advanced safely and appropriately in order for the patient to progress towards his/her prior level of function. Additional exercises will be introduced and as well as a comprehensive home exercise program upon discharge, if needed, ?to ensure carryover of functional gains achieved in the clinic. This treatment plan has been reviewed and agreement upon by the patient.
--- NOTE | 2024-10-22 14:02 | OPREHPOC ---
Outpatient Therapy Plan of Care This is a Multidisciplinary Plan of Care that may contain components documented by all disciplines (PT, OT, and ST.) PT Problem 1 PT Problem #1 Knowledge Deficit PT Goal 1 Goal / Goal Update 1. compliant with HEP program, maintenance program , and attendance of 2x weekly fall prevention class Target Visit 4 Progress Met PT Problem 2 PT Problem #2 Impaired Functional Mobility PT Goal 1 Goal / Goal Update 1. patient to display no more than a 2-3 second reduction in score on the TUG and 5x sit to stand. met 2. HYDE to display 6 points or greater improvement of score. met Target Visit 16 Progress Met PT Goal 2 Goal / Goal Update New Goal: Patient to demonstrate a low fall risk per the Tinetti Balance Score. Patient to demonstrate a low fall risk per the HYDE balance test. Continue both Target Visit 40 Progress Not Met PT Problem 3 PT Problem #3 Impaired Functional Mobility PT Goal 1 Goal / Goal Update 1. patient to ambulate up and down steps with reciprocal mechanics without need for UE assist to pullup to next step going up. Target Visit 32 Progress Not Met PT Goal 2 Goal / Goal Update Continue Target Visit 40
--- NOTE | 2024-10-22 14:02 | PTOPPROG ---
Assessment and note entered by Iris Rduolph, PT Evaluation Information Assessment Status Progress Diagnosis Parkinson's Disease Other ICD-10 Condition Codes ( G20.A1; G62.9 PT) Onset 01/21/24 Subjective Information Vishnu Mcpherson reports he continues to do well. He was able to work in his yard for half a day yesterday and feels good today. He did have a fall about 2 weeks ago when he went to sit in his easy chair and hit the arm of the chair instead of the seat causing him to fall to the floor. He caught his arm on another piece of furniture on the way down and sustained an abrasion. Otherwise, he was unharmed. He has not had any other falls though. Assessment PT Clinical Summary Vishnu Mcpherson presents to skilled PT for re- evaluation of his maintenance POC for Parkinson's. He reports one fall in the last month when he sat too early and hit the arm of his easy chair instead of the seat causing him to slide to the floor. He continues to be a fall risk when up on his feet for a prolonged time, making sharp turns, and repetitively using stairs. He remains a moderate fall risk per the Tinetti and Powers balance scales. Continue skilled maintenance PT is indicated to maintain patients safety, stability, and lack of falls to prevent worsening Parkinson' s condition or injury. Plan of Care Interventions Gait Training,Neuro Re-education,Patient/Caregiver Education,Therapeutic Activities,Therapeutic Exercise PT Services Indicated Yes Treatment Frequency and continue skilled maintenance PT 1x weekly for 4 Duration more visits These treatments will address the objective and functional deficits as defined above. The patient will be advanced safely and appropriately in order for the patient to progress towards his/her prior level of function. Additional exercises will be introduced and as well as a comprehensive home exercise program upon discharge, if needed, ?to ensure carryover of functional gains achieved in the clinic. This treatment plan has been reviewed and agreement upon by the patient.
== END 2024-10-29 20:00 | disposition still patient (30) ==
LOC: CHSPT 13:20
DX: G62.9 Polyneuropathy, unspecified (principal); G20.A1 Parkinson's disease without dyskinesia, without mention of fluctuations
CPT/HCPCS: 97110; 97112; 97150; 97530; 97750

== ENCOUNTER 2024-12-17 13:00 | Outpatient (RCR) | payer MEDICARE, SELFPAY ==
--- NOTE | 2024-11-19 13:59 | OPREHPOC ---
Outpatient Therapy Plan of Care This is a Multidisciplinary Plan of Care that may contain components documented by all disciplines (PT, OT, and ST.) PT Problem 1 PT Problem #1 Knowledge Deficit PT Goal 1 Goal / Goal Update 1. compliant with HEP program, maintenance program , and attendance of 2x weekly fall prevention class Target Visit 4 Progress Met PT Problem 2 PT Problem #2 Impaired Functional Mobility PT Goal 1 Goal / Goal Update 1. patient to display no more than a 2-3 second reduction in score on the TUG and 5x sit to stand. met 2. HYDE to display 6 points or greater improvement of score. met Target Visit 16 Progress Met PT Goal 2 Goal / Goal Update Patient to demonstrate a low fall risk per the Tinetti Balance Score. -nearly met Patient to demonstrate a low fall risk per the HYDE balance test. -progress Continue above goals New goal: Pt to demonstrate confidence in balancing with eyes closed and/or in dim environments to improve ability to navigate his home at night. Target Visit 40 Progress Not Met PT Problem 3 PT Problem #3 Impaired Functional Mobility PT Goal 1 Goal / Goal Update 1. patient to ambulate up and down steps with reciprocal mechanics without need for UE assist to pullup to next step going up. Target Visit 32 Progress Not Met PT Goal 2 Goal / Goal Update Continue Target Visit 40
--- NOTE | 2024-11-19 13:59 | PTOPPROG ---
Assessment and note entered by Kellen Benitez, PT Evaluation Information Assessment Status Progress Diagnosis Parkinson's Disease Other ICD-10 Condition Codes ( G20.A1; G62.9 PT) Onset 01/21/24 Subjective Information Mr. Mcpherson presents today for skilled PT re- evaluation. He continues to report issues with balance especially when his eyes are closed and in dim environments. He has been able to work in his yard and walk around in the yard but he does so with caution. He would like to continue therapy to make additional progress with his balance to reduce falls and fall risk. Assessment PT Clinical Summary Mr. Mcpherson has attended 40 skilled PT visits addressing balance and functional mobility. He demonstrates improved outcomes on Tinetti and HYDE balance tests, however still demonstrates deficits in dynamic balance and static balance with his eyes closed which contributes to continued fall risk. He particularly continues to struggle with balancing with his eyes closed and in dim environments, as well as on uneven surfaces such as his front yard. He will benefit from continued skilled PT intervention to address balance deficits both static and dynamic to improve safety in his home and community and further reduce fall risk. Plan of Care Interventions Gait Training,Neuro Re-education,Patient/Caregiver Education,Therapeutic Activities,Therapeutic Exercise PT Services Indicated Yes Treatment Frequency and 1x/week for 4 additional visits Duration These treatments will address the objective and functional deficits as defined above. The patient will be advanced safely and appropriately in order for the patient to progress towards his/her prior level of function. Additional exercises will be introduced and as well as a comprehensive home exercise program upon discharge, if needed, ?to ensure carryover of functional gains achieved in the clinic. This treatment plan has been reviewed and agreement upon by the patient.
--- NOTE | 2024-12-17 15:43 | PTOPPROG ---
Assessment and note entered by Kellen Benitez, PT Evaluation Information Assessment Status Progress Diagnosis Parkinson's Disease Other ICD-10 Condition Codes ( G20.A1; G62.9 PT) Onset 01/21/24 Subjective Information Doug presents for another PT re-evaluation today addressing balance and gait deficits related to Parkinson's. He reports he has not fallen since his last PT re-evaluation. He states that he still struggles with his balance overall, especially in dim environments. Assessment PT Clinical Summary Doug has attended 44 skilled PT visits addressing balance and gait deficits associated with Parkinson's disease and polyneuropathy. He presents today with minimal change in objective balance assessments but he does demonstrate improved ability to perform static and dynamic balance activities with only minimal UE support. He continues to struggle with coordination and balance when making turns, stepping over objects, and in dim environments. Continued skilled PT intervention is indicated to make further progress in his coordination, static and dynamic balance to improve safety and functional independence with ADLs. Plan of Care Interventions Gait Training,Neuro Re-education,Patient/Caregiver Education,Therapeutic Activities,Therapeutic Exercise PT Services Indicated Yes Treatment Frequency and 1x/week for 4 additional visits Duration These treatments will address the objective and functional deficits as defined above. The patient will be advanced safely and appropriately in order for the patient to progress towards his/her prior level of function. Additional exercises will be introduced and as well as a comprehensive home exercise program upon discharge, if needed, ?to ensure carryover of functional gains achieved in the clinic. This treatment plan has been reviewed and agreement upon by the patient.
--- NOTE | 2025-01-07 17:57 | OPREHPOC ---
Outpatient Therapy Plan of Care This is a Multidisciplinary Plan of Care that may contain components documented by all disciplines (PT, OT, and ST.) PT Problem 1 PT Problem #1 Knowledge Deficit PT Goal 1 Goal / Goal Update 1. compliant with HEP program, maintenance program , and attendance of 2x weekly fall prevention class Target Visit 4 Progress Met PT Problem 2 PT Problem #2 Impaired Functional Mobility PT Goal 1 Goal / Goal Update 1. patient to display no more than a 2-3 second reduction in score on the TUG and 5x sit to stand. met 2. HYDE to display 6 points or greater improvement of score. met Target Visit 16 Progress Met PT Goal 2 Goal / Goal Update Patient to demonstrate a low fall risk per the Tinetti Balance Score. -not met 01/07/25 Patient to demonstrate a low fall risk per the HYDE balance test. -not met 01/07/25 Continue above goals New goal: Pt to demonstrate confidence in balancing with eyes closed and/or in dim environments to improve ability to navigate his home at night. Target Visit 40 Progress Not Met PT Problem 3 PT Problem #3 Impaired Functional Mobility PT Goal 1 Goal / Goal Update 1. patient to ambulate up and down steps with reciprocal mechanics without need for UE assist to pullup to next step going up. Target Visit 32 Progress Not Met PT Goal 2 Goal / Goal Update Continue Target Visit 40
--- NOTE | 2025-01-07 17:57 | PTOPPROG ---
Assessment and note entered by Kellen Benitez, PT Evaluation Information Assessment Status Progress Diagnosis Parkinson's Disease Other ICD-10 Condition Codes ( G20.A1; G62.9 PT) Onset 01/21/24 Subjective Information Doug presents today for PT re-evaluation addressing gait and balance as part of his Parkinson's disease maintenance program. He denies any new complaints this date and reports that he did purchase a walker for safety and that his wants him to have it just in case. Pt reports he went to the doctor with his and son, and pt told the doctor he wasn't doing any exercises at home. Pt states the doctor told him he needs to exercise more. Pt attends therapy once per week in clinic and also attends our fall prevention class twice per week, however pt reports feeling like he gets more benefit from therapy sessions in clinic vs the fall prevention class. Per pt's , pt's doctor recommended that pt increase PT sessions to 2x/week. Assessment PT Clinical Summary Mr. Mcpherson presents for his 47th skilled PT visit of his Parkinson's disease maintenance program. Compared to last re-evaluation there has been a slight decrease in Tinetti score and pt continues to demonstrate balance deficits in dimly lit environments. He will continue to benefit from skilled PT maintenance to prevent falls and maintain independence. He has maintained his attendance at our fall prevention class 2x/week in addition to in-clinic visits 1x/week, however to devote more individual time to balance training we will increase PT frequency to 2x/week with MD approval. Plan of Care Interventions Gait Training,Neuro Re-education,Patient/Caregiver Education,Therapeutic Activities,Therapeutic Exercise PT Services Indicated Yes Treatment Frequency and Per MD recommendation, increase PT frequency to 2x Duration /week for 8 additional visits These treatments will address the objective and functional deficits as defined above. The patient will be advanced safely and appropriately in order for the patient to progress towards his/her prior level of function. Additional exercises will be introduced and as well as a comprehensive home exercise program upon discharge, if needed, ?to ensure carryover of functional gains achieved in the clinic. This treatment plan has been reviewed and agreement upon by the patient.
== END 2025-02-03 23:59 | disposition home or self-care (01) ==
LOC: CHSPT 13:00
DX: G62.9 Polyneuropathy, unspecified (principal); G20.A1 Parkinson's disease without dyskinesia, without mention of fluctuations
CPT/HCPCS: 97110; 97112; 97530